=== PATIENT | female | born 1960 | race African-American/Black ===

== ENCOUNTER → 2020-08-03 | Outpatient (CLI) | payer MEDICARE ==
--- NOTE | 2020-08-03 19:30 | RADIOLOGY REPORT (SQ) ---
EXAM DESCRIPTION: FOOT LEFT COMPLETE IMAGES COMPLETED DATE/TIME: 08/03/2020 5:21 pm REASON FOR STUDY: (S99.922A)UNSPECIFIED INJURY OF LEFT FOOT, INITIAL ENCOUNTER S99.922A UNSPECIFIED INJURY OF LEFT FOOT, INITIAL ENCOUNTER COMPARISON: None. NUMBER OF VIEWS: Three views. TECHNIQUE: AP, lateral and oblique radiographic images acquired of the left foot. LIMITATIONS: None. FINDINGS: MINERALIZATION: Normal. BONES: No acute fracture or dislocation. No worrisome bone lesions. JOINTS: No effusions. SOFT TISSUES: No soft tissue swelling. No foreign body. OTHER: No other significant finding. IMPRESSION: 1. NEGATIVE STUDY OF THE LEFT FOOT. TECHNICAL DOCUMENTATION: JOB ID: [id number] 2010 [employer]- All Rights Reserved Reading location - IP/workstation name: [email or web address]
== END ==
LOC: RAD 16:59
PROVIDERS: ATTEND Nurse Practitioner Primary Care
DX: S99.922A Unspecified injury of left foot, initial encounter (principal); X58.XXXA Exposure to other specified factors, initial encounter

== ENCOUNTER → 2020-09-08 | Outpatient (CLI) | payer MEDICARE ==
--- NOTE | 2020-09-08 19:11 | RADIOLOGY REPORT (SQ) ---
EXAM DESCRIPTION: HIP BILATERAL IMAGES COMPLETED DATE/TIME: 09/08/2020 2:21 pm REASON FOR STUDY: (M25.551)PAIN IN RIGHT HIP(M25.552)PAIN IN LEFT HIP M25.552 PAIN IN LEFT HIP M25. 551 PAIN IN RIGHT HIP COMPARISON: None. NUMBER OF VIEWS: Two views. TECHNIQUE: AP pelvis and additional frog legview of the right and left hip. LIMITATIONS: None. FINDINGS: MINERALIZATION: Normal. HIPS: No fracture or dislocation. No worrisome bone lesions. Joint spaces are intact. PUBIS AND ISCHIUM: There is some diffuse sclerosis bilaterally at the pubic symphysis. Small subchon dral cystic changes also demonstrated. PELVIS: No fracture. SACRUM: Mild sclerotic changes at the sacroiliac joints, slightly more pronounced on the left. LOWER LUMBAR SPINE: Partially visualized degenerative changes. SOFT TISSUES: Multiple calcifications in the left pelvis may reflect phleboliths. OTHER: No other significant finding. IMPRESSION: 1. Sclerotic and small cystic changes in the pubic symphysis suggestive of osteitis pub is. 2. Mild sclerotic changes of the sacroiliac joints, more pronounced on the left. 3. Degenerative changes of the visualized lower lumbar spine. TECHNICAL DOCUMENTATION: JOB ID: [id number] 2010 [employer]- All Rights Reserved Reading location - IP/workstation name: [email or web address]
== END ==
LOC: RAD 16:55
PROVIDERS: ATTEND Nurse Practitioner Primary Care
DX: M25.551 Pain in right hip (principal); M25.552 Pain in left hip; M89.8X8 Other specified disorders of bone, other site
CPT/HCPCS: 73522